=== PATIENT | female | born 1945 | race Caucasian/White ===

== ENCOUNTER 2025-03-24 12:40 | Outpatient (CLI) | payer MEDICARE, BC, SELFPAY ==
--- NOTE | ~2025-03-24 | NM_ITS ---
EXAMINATION: DENY diaz renal scan DATE: 03/24/2025 13:48 INDICATION: Right UPJ obstruction TECHNIQUE: 7.9 mCi Tc-99m MAG3 was administered IV. 40 mg furosemide was administered IV immediately afterward. The patient was scanned in the supine position. A posterior abdominal radionuclide angiog rob was obtained. A subsequent time course of static images of the kidneys, ureters, and bladder was obtained. COMPARISON: None FINDINGS: The posterior abdominal radionuclide angiogram and sequential static images show normal size, positio n, and morphology of the kidneys. There appears be at least mild right hydronephrosis. Peak renal par enchymal uptake was 2.5 min in left kidney and 4.5 min in right kidney (normal peak 3-5 minutes). Th e relative early renal uptake was 43% on the left and 57% on the right (<40% is abnormal). No abnorm alities of the ureters or bladder are seen. T1/2 for clearance of activity from the left kidney and proximal collecting system was 23 minutes. T1/2 for clearance of activity from the right kidney and proximal collecting system was 32 minutes. Notes on interpretation: T1/2 <10 minutes is normal, 10-15 minutes is low grade obstruction of questi onable clinical significance, 15-20 minutes is partial obstruction that is likely clinically signific ant, >20 minutes is high grade obstruction. Note that false positives may be seen with supine positio ana luisa, dehydration, severely dilated nonobstructed kidney, atonic collecting system, poor renal functi on, and chronic furosemide use. IMPRESSION: 1. Borderline decreased left renal function which contributes 43% to total renal function. 2. Delayed activity clearance from both kidneys more prominent on the right where there appears to b e at least mild right hydronephrosis. The degree of delay in both kidneys would be consistent with hi gh-grade obstruction however there is no evident hydronephrosis at the left kidney which suggests the re may be component of either underlying poor renal function. Reviewed, dictated and finalized at location A. IMPRESSION: 1. Borderline decreased left renal function which contributes 43% to total oni al function. 2. Delayed activity clearance from both kidneys more prominent on the right wh ere there appears to be at least mild right hydronephrosis. The degree of delay in both kidneys would be consistent with high-grade obstruction however there is no evident hydronephrosis at the left kidney which suggests there may be com ponent of either underlying poor renal function.
--- OUTSIDE RECORDS SUMMARY | 2025-03-24 12:51 | XMS_ITS ---
Author Organization [facility] Address [address] [place], [place] [id number] Care Team Providers Care Auto Body Builder Apprentice Name Role Phone FLO GUZMAN Unavailable [phone] ALLISON HUANG Unavailable Unavailable Allergies Allergen (clinical drug ingredient) Drug/Non Drug Allergy documented on EMR Reaction Allergy Type Onset Date Status penicillin V Penicillin V (uncoded) Unknown Allergy 10/27 active Product containing sulfonamide (product) (uncoded) Unknown Allergy 11/07/2015 active cephalexin Cephalexin Unknown Drug Allergy Activ e REASON FOR VISIT Patient presents for at-risk foot care . The patient has painful toenails and calluses that are causing difficulty with ambulation and shoegear. The onset is gradual Medications Medication SIG (Take, Route, Frequency, Duration) Notes Start Date End Date Status ciclopirox 80 MG/ML Topical Solution ciclopirox 80 MG/ML Topical SolutionOriginal Medicationciclopirox 80 MG/ML Topical Solution *Reorder from [employer] for eRx and Interaction Alerts* 11/07/2015 Active Encounters Encounter Location Date Provider Diagnosis [facility] [address] [place], [place] [id number] 12/22/2024 FLO GUZMAN Tinea unguium B35.1 ; Pain in right foot M79.671 ; Pain in left foot M79.672 ; Atherosclerosis of moapa arteries of extremities with intermittent claudication, bilateral legs I70.213 and Acquired keratosis [keratoderma] palmaris et plantaris L85.1 Assessments Encounter Date Diagnosis (ICD Code) Assessment Notes Treatment Notes Treatment Clinical Notes Section Notes 12/22/2024 Tinea unguium (ICD-10 - B35.1) Nails 1-5 Bilateral were debrided extensively with nail nippers and emery board, reducing length and girth to pink healthy tissue with any subungual debris and necrotic tissue removed 12/22/2024 Pain in right foot (ICD-10 - M79.671) 12/22/2024 Pain in left foot (ICD-10 - M79.672) 12/22/2024 Atherosclerosis of moapa arteries of extremities with intermittent claudication, bilateral legs (ICD-10 - I70.213) 12/22/2024 Acquired keratosis [keratoderma] palmaris et plantaris (ICD-10 - L85.1) A total of 4 corns or calluses, as described in the note above, were cut and pared utilizing a #15 blade Plan Of Treatment Treatment Notes Assessment Notes Tinea unguium Nails 1-5 Bilateral were debrided extensively with nail nippers and emery board, reducing length and girth to pink healthy tissue with any subungual debris and necrotic tissue removed Acquired keratosis [keratode rma] palmaris et plantaris A total of 4 corns or calluses, as described in the note above, were cut and pared utilizing a #15 blade Next Appt Details Follow Up: 10 - 12 weeks, Re ason: At-Risk Foot care, sooner if problems develop. Provider Name:FLO GUZMAN, 02:20:00 PM, [address], [phone], Progress Notes * CHATO WILSON MDOB: 6 (79 yo F)Acc No.[id number]:12/22/2024 Patient: CHATO MADRIGAL Provider: Romel Guzman DPM :1945 A ge:79 Y S ex:Female Date:12/22/2024 Address:[address] [place], [place] [id number] Subjective: * Chief Complaints: * 1 . Patient presents for at-risk foot care . The patient has painful toenails and calluses that are causing difficulty with ambulation and shoegear. The onset is gradual. * HPI: H PI: General care P atient presents to the office for at risk foot care. Patient states that their nails are thickened, elongated and painful. Patient states that it is aggravated by shoe gear. Onset is gradual. Patient denies being diabetic., Patient denies taking blood thinners., Date last seen by Dr. James was 2024., Initials LB. * Medical History: * Family History: F ather: PRN - Father: :: Heart Disease < 55 yrs,,known absent . M other: PRN - Mother: :: Hypertension,,known absent , :: Stroke,,known absent . * Social History: M igrated Social History: M igrated Social History: History of tobacco use : , Alcohol intake : , Smoking Status : Never smoked. * Medications: T aking ciclopirox 80 MG/ML Topical Solution , Notes to Pharmacist: ciclopirox 80 MG/ML Topical SolutionOriginal Medicationciclopirox 80 MG/ML Topical Solution *[facility]*, Medication List reviewed and reconciled with the patient * Allergies: P enicillin V: Allergy - Onset Date 11/07/2015, Product containing sulfonamide (product): Allergy - Onset Date 11/07/2015, Cephalexin. Objective: * Vitals: * Examination: P hysical Examination: General appearance: A lert, pleasant, well-nourished and in no acute distress. D ermatologic: Skin findings: S kin is thin, atrophic and lacking pedal hair. Hypertrophic / hyperkeratotic lesion: p lantar aspect of the 5th metatarsal head of the left and right foot, dorsal aspect of the left 2nd and 5th digits. Nail pathology: N ails 1, 2, 3, 4, and 5 bilateral are elongated, thick, discolored, and dystrophic with subungual debris. They are painful to palpation. ? V ascular: Dorsalis pedis pulse: 1 /4 b ilateral. Posterior tibial pulse: 0 /4 bilateral. Capillary refill: g reater than 3 seconds. Edema: N o edema bilateral. N eurologic: Gross sensation G rossly intact to light touch. There is negative Tinel's sign. M usculoskeletal: Muscle Strength M uscle strength is 5/5 in regards to dorsiflexion, plantarflexion, inversion, and eversion in bilateral lower extremities. ? Assessment: * Assessment: 1. T josettea unguium - B35.1 (Primary) 2 . P ain in right foot - M79.671 ? 3 . P ain in left foot - M79.672 4 . A therosclerosis of moapa arteries of extremities with intermittent claudication, bilateral legs - I70.213 5 . Acquired keratosis [keratoderma] palmaris et plantaris - L85.1 Plan: * Treatment: 2. A cquired keratosis [keratoderma] palmaris et plantaris Notes: A total of 4 corns or calluses, as described in the note above, were cut and pared utilizing a #15 blade * Procedure Codes: 1 1056 TRIM SKIN LESIONS, 2 TO 4, Modifiers: Q8 , 48233 DEBRIDE NAIL, 6 OR MORE, Modifiers: 59 , Q8 * Follow Up: 1 0 - 12 weeks (Reason: At-Risk Foot care, sooner if problems develop.) * Billing Information: * Visit Code: * Procedure Codes: 87945 TRIM SKIN LESIONS, 2 TO 4. Modifiers: Q8 47290 DEBRIDE NAIL, 6 OR MORE. Modifiers: 59, Q8 * Electronic signature of FLO GUZMAN DPM on 03/24/2025 at 12:51 PM CDT Sign off status: Pending * Provider: Romel Guzman DPM Date: 0 12/22/2024 Generated for Marti quesada/Loan/Jenniferitting on: 0 03/24/2025 12:51 PM CDT History and Physical Notes * HPI (History of Present Illness) Category Sub-Category Detail Notes Category Not es HPI General care Patient presents to the office for at risk foot care. Patient states that their nails are thickened, elongated and painful. Patient states that it is aggravated by shoe gear. Onset is gradual. Patient denies being diabetic., Patient denies taking blood thinners., Date last seen by Dr. James was 2024., Initials LB Examination Category Sub-Category Detail Notes Category Not es Dermatologic Skin findings: Skin is thin, at rophic and lacking pedal hair Nail pathology: Nails 1, 2, 3, 4, an d 5 bilateral are elongated, thick, discolored, and dystrophic with subungual debris. They are painful to palpation Hypertrophic / hyperkeratotic lesion: pl nina aspect of the 5th metatarsal head of the left and right foot, dorsal aspect of the left 2nd and 5th digits Neurologic Gross sensation Grossly intact t o light touch. There is negative Tinel's sign Vascular Dorsalis pedis pulse: 1/4 bilateral Edema: No edema bilateral Capillary refill: greater than 3 secon ds Posterior tibial pulse: 0/4 bilateral Physical Examination General appearance: Alert, pleasant, well-nourished and in no acute distress Musculoskeletal Muscle Strength Muscle strength is 5/5 in regards to dorsiflexion, plantarflexion, inversion, and eversion in bilateral lower extremities
--- OUTSIDE RECORDS SUMMARY | 2025-03-24 12:52 | XMS_ITS | Clinical Summary ---
Author Organization [facility] Address [address] [place] [address] Care Team Providers Care Process Artist Name Role Phone Parent, Humaira BRAYD Primary Care Provider Allergies Active Allergy Reactions Criticality Noted Date Comments Atorvastatin Muscle pain Medium 06/30/2012 Cephalexin Hives,Rash High 06/30/2018 Rash Conjugated Estrogens Headache Medium 06/30/2012 Penicillins Hives,Itching,Rash,R ednes s,Swelling Medium 06/30/2012 Rash Sulfa (Sulfonamide Antibiotics) Hives,Itching,Rash,Rednes s,Swelling Medium 06/30/2012 Medications potassium chloride ER (KLOR-CON) 20 mEq CR tablet Klor-Con M20 mEq tablet,exten ded release TAKE 1 TABLET BY MOUTH EVERY DAY 08/29/2016 Active ascorbic acid (VITAMIN C) 500 mg tablet,chewable Acti ve cholecalciferol (VITAMIN D-3) 74620 unit capsule Take 1 capsule (10,000 Units total) by mouth daily Active -fqsP2-C1 2-E-FA-fish oil [id number] ju-io-lzm-mcg capsule Take by mouth Active cranberry 400 mg capsule Take by mouth Active cyanocobalamin (Vitamin B-12) 1,000 mcg tabletIndicatio ns:Prevention of Vitamin B12 Deficiency Take 1 tablet (1,000 mcg total) by mouth daily Active atenoloL (TENORMIN) 50 mg tablet TAKE 1 TABLET BY MOUTH EVERY DAY 90 tablet 3 01/30/2024 Active lisinopril-hydr oCHLOROthiazide (ZESTORETIC) 20-25 mg per tablet TAKE 1 TABLET BY MOUTH TWICE A DAY 180 tablet 3 02/06/2024 Active pravastatin (PRAVACHOL) 80 mg tablet TAKE 1 TABLET BY MOUTH EVERY DAY AT NIGHT 90 tablet 3 01/27/2025 Active Active Problems Problem Noted Date Diagnosed Date Exertional dyspnea 09/03/2023 Family history of arteriosclerotic cardiovascula r disease 09/03/2023 Pain of left eye 04/15/2023 Herpes labialis 01/17/2023 COVID-19 01/01/2023 Body mass index (BMI) of 24.0 to 24.9 in adult 0 06/03/2022 On truck terminal manager drug therapy 06/03/2022 LV dysfunction 06/08/2021 Assessment & Plan (02/28/2023 10:51 AM CDT): Patient has minimal LV dysfunction however blood pressure is under good control she is not smoker her lipids are in good range patient not having any symptoms no orthopnea PND or ankle edema advised to continue same medication and salt restriction SVT (supraventricular tachycardia) 06/08/2021 Assessment & Plan (02/28/2023 10:50 AM CDT): Patient has history of SVT presently on atenolol which she is tolerating well however shortly bradycardic. Essential hypertension 05/03/2021 Assessment & Plan (02/28/2023 10:49 AM CDT): Longstanding history of hypertension patient on lisinopril hydrochlorothiazide tolerating well plan to continue same and salt restricted diet Lipids abnormal 05/03/2021 Assessment & Plan (02/28/2023 10:50 AM CDT): Patient has longstanding history of a abnormal lipids on statin which she is tolerating well no side effects no muscle aches advised to continue statin and low-cholesterol diet VPC (ventricular premature complex) 05/03/2021 Abnormal EKG 05/03/2021 Neck pain 05/12/2020 Mixed hyperlipidemia 02/04/2018 Cataract 07/18/2015 Onychomycosis due to dermatophyte 05/24/2014 Localized, primary osteoarthritis 06/28/2012 Mitral valve prolapse 06/28/2012 Osteoarthritis of knee 06/28/2012 Pure hypercholesterolemia 06/28/2012 Tear film insufficiency 06/28/2012 Essential hypertension 06/28/2012 Overview (05/26/2024): Location: None;Severity: Moderate;Progress: Stable;Added By: Roxanna Alfaro;Add to Current Problems: NO Hormone replacement therapy 06/28/2012 Resolved Problems Problem Noted Date Diagnosed Date Resolved Date Dilated cardiomyopathy 05/03/202105/03 Encounters Date Type Department Care Team Description 03/03/2025 11:30 AM CDT Lab [facility] [address] [place] [id number] from Last 3 Months Immunizations Immunization Administration Dates Next Due Pfizer SARS-CoV-2 Monovalent Vaccination (12+ Yrs) PURPLE 02/04/2022,08/20/2021 Surgical History Surgery Date Site/Laterality Comments JOINT REPLACEMENT EYE SURGERY KNEE SURGERY BLADDER REPAIR HYSTERECTOMY CATARACT EXTRACTION 2014 and 2020 Medical History Medical History Date Comments Hyperlipidemia Hypertension Osteoarthritis of knee Neck pain Hormone replacement therapy Mitral valve disorder Cataract Migraines Prior to menopause had frequent migranes. Family History Medical History Relation Name Comments Arthritis Brother 1 Nestor Wetak Cancer Brother 1 Nestor Wetak Rashes / Skin problems Brother 1 Nestor Wetak Stroke Brother 1 Nestor Wetak Arthritis Brother 2 Peter Wetak Cancer Daughter 1 Gilma Wiechert Hypertension Daughter 2 Ayla Cook Heart disease Father Floyd Wetak Heart failure Father Floyd Wetak Hyperlipidemia Father Floyd Wetak Hypertension Mother [place] Wetak Migraines Mother Jacinta Wetak Osteoporosis Mother Jacinta Wetak Heart attack Son 1 Paras Segert Hypertension Son 1 Paras Segert Hypertension Son 2 Cristhian Steward Relation Name Status Comments Brother 1 Nestor Wetak Brother 2 Peter Wetak Daughter 1 Gilma Wiechert Daughter 2 Ayla Cook Father Floyd Wetak Mother Jacinta Wetak Son 1 Paras Segert Son 2 Cristhian Steward Social History Tobacco Use Types Packs/Day Years Used Date Smoking Tobacco: Never Smokeless Tobacco: Never Comments Unknown Sex and Gender Information Value Date Recorded Sex Assigned at Not on file Legal Sex Female 8:14 PM CARTRIDGE FILLER Gender Identity Female 04/26/2021 6:42 PM CDT Sexual Orientation Straight 04/26/2021 6: 42 PM CDT Obstetrics History Last Filed Vital Signs Vital Sign Reading Time Taken Comments Blood Pressure 110/56 05/27/2024 11:46 AM CDT Pulse 68 05/27/2024 11:46 AM CDT Temperature 36.2 C (97.1 F) 09/11/2021 1:13 PM CARTRIDGE FILLER Respiratory Rate 18 01/15/2024 12:41 PM CDT Oxygen Saturation 95% 05/27/2024 11:46 AM CDT Inhaled Oxygen Concentration - - Weight 67.6 kg (149 lb) 05/27/2024 11:46 AM CDT Height 165.1 cm (5' 5) 05/27/2024 11:46 AM CDT Body Mass Index 24.79 05/27/2024 11:46 AM CDT Plan of Treatment Health Maintenance Due Date Last Done Comments Depression Screening 1945 Fall Risk Assessment 1945 Hepatitis B Screening 1964 Zoster Vaccine (1 of 2) 1996 Well Visit 65+ 2011 Covid-19 Vaccine (2023-2 5 season) 2024 07/30/2022, 02/04/2022, 02/04/2022, Additional history exists Osteoporosis Screening-Bone Density Scan 06/09/2025 06/09/2023 DTaP/Tdap/Td Vaccine (2 - Td or Tdap) 02/05/2028 02/04/2018, 11/17/2006 Pneumococcal vaccine 65+ Completed 04/02/2019, 02/24 Breast Cancer Screening-Mammogram Discontinued 06/05/2023, 06/04/2022, 06/04/2022, Additional history exists Influenza Vaccine Completed 08/27/2024, , 07/15/2022, Additional history exists Hepatitis C Screening Completed 11/17/2024, 024 Procedures Procedure Name Priority Date/Time Associated Diagnosis Comments DIFFERENTIAL AUTO Routine 03/03/2025 11: 24 AM CDT IRON PROFILE W/ IBC Routine 03/03/2025 1 1:24 AM CDT FERRITIN Routine 03/03/2025 11:24 AM CDT CBC WITH AUTO DIFFERENTIAL Routine 03/03/2025 11:24 AM CDT HEPATITIS C ANTIBODY Routine 11/17/2024 11:25 AM CARTRIDGE FILLER from Last 3 Months or Most Recently Relevant to Health Maintenance Results * Differential, auto (03/03/2025 11:24 AM CDT) Pathologist [facility] Neutrophil abs 3.94 1.50 - 6.50 K/cumm Imm gran abs 0.02 0.00 - 0.10 K/cumm [facility] Lymphocyte abs 1.68 0.80 - 3.30 K/cumm [facility] Monocyte abs 0.61 0.20 - 0.80 K/cumm [facility] Eosinophil abs 0.12 0.00 - 0.50 K/cumm [facility] Basophil abs 0.04 0.00 - 0.10 K/cumm [facility] Neutrophil pct 61.5 % [facility] Comment: Interpretive Data Percent cell count reference ranges are not reported, since discordance with absolute values may lead to misinterpretation of CBC data. Current Interpretive Data was last revised on 2018. Imm gran pct 0.3 % [facility] Comment: Interpretive Data Percent cell count reference ranges are not reported, since discordance with absolute values may lead to misinterpretation of CBC data. Current Interpretive Data was last revised on 2018. Lymphocyte pct 26.2 % [facility] Comment: Interpretive Data Percent cell count reference ranges are not reported, since discordance with absolute values may lead to misinterpretation of CBC data. Current Interpretive Data was last revised on 2018. Monocyte pct 9.5 % [facility] Comment: Interpretive Data Percent cell count reference ranges are not reported, since discordance with absolute values may lead to misinterpretation of CBC data. Current Interpretive Data was last revised on 2018. Eosinophil pct 1.9 % [facility] Comment: Interpretive Data Percent cell count reference ranges are not reported, since discordance with absolute values may lead to misinterpretation of CBC data. Current Interpretive Data was last revised on 2018. Basophil pct 0.6 % [facility] Comment: Interpretive Data Percent cell count reference ranges are not reported, since discordance with absolute values may lead to misinterpretation of CBC data. Current Interpretive Data was last revised on 2018. Blood 03/03/2025 11:2 4 AM CDT 03/03/2025 12:13 PM CDT Makayla Hollis MD LAB BLOOD ORDERABLES Rhea l Result Performing Organization Address City/[facility]/ZIP Co de Phone Number [address] [place] [address] * Iron profile w/ IBC (03/03/2025 11:24 AM CDT) Pathologist [facility] Iron 94 35 - 145 mcg/dL TIBC 282 250 - 400 mcg/dL [facility] Transferrin saturation 33 20 - 50 % [facility] Blood 03/03/2025 11:2 4 AM CDT 03/03/2025 12:13 PM CDT Makayla Hollis MD LAB BLOOD ORDERABLES Rhea l Result Performing Organization Address [facility] Co de Phone Number [address] [address] * (ABNORMAL) CBC with auto differential (03/03/2025 11:24 AM CDT) WBC 6.41 3.80 - 9.90 K/cumm Hgb 12.1 11.9 - 15.5 g/dL [facility] Hct 36.0 35.6 - 45.5 % [facility] Plt 178 150 - 400 K/cumm [facility] MPV 11.9 9.1 - 12.3 fL [facility] RBC 3.82(L) 3.90 - 5.20 M/cumm [facility] MCV 94.2 81.3 - 96.4 fL [facility] MCH 31.7 27.1 - 33.3 pg [facility] MCHC 33.6 32.3 - 35.7 g/dL [facility] RDW CV 12.8 11.1 - 14.9 % [facility] RDW SD 44.2 35.7 - 48.1 fL [facility] NRBC abs 0.00 0.00 - 0.01 K/cumm [facility] Blood 03/03/2025 11:2 4 AM CDT 03/03/2025 12:13 PM CDT Makayla Hollis MD LAB BLOOD ORDERABLES Rhea l Result Performing Organization Address City/[facility] Co de Phone Number [address] [place] [address] * Ferritin (03/03/2025 11:24 AM CDT) Ferritin 109 15 - 150 ng/mL Blood 03/03/2025 11:2 4 AM CDT 03/03/2025 12:13 PM CDT Makayla Hollis MD LAB BLOOD ORDERABLES Rhea l Result Performing Organization Address [facility] de Phone Number [address] [place] [address] * Hepatitis C antibody Blood (11/17/2024 11:25 AM CARTRIDGE FILLER) Pathologist [facility] Hep C Ab Nonreactive Nonreactive Comment: Antibodies to HCV not detected. Does NOT exclude the possibility of recent exposure to HCV. Current interpretive data was last revised on 22 Interpretive Data Nonreactive: Antibodies to HCV not detected. Does NOT exclude the possibility of recent exposure to HCV. Equivocal: Equivocal for HCV antibodies. Supplemental molecular testing will be automatically performed to determine infection status in accordance with current CDC screening recommendations. Reactive: Positive for HCV antibodies. This may represent current or past HCV infection. Supplemental molecular testing will be automatically performed to determine current infection status in accordance with current CDC screening recommendations. Interpretive data was last revised on 2020. Blood 11/17/2024 11:2 5 AM CARTRIDGE FILLER 11/17/2024 12:02 PM CARTRIDGE FILLER Luz Maria Corral NP LAB MICROBIOLOGY - G ENERAL ORDERABLES Final Result [facility] [address] [facility] Department [place] [address] from Last 3 Months or Most Recently Relevant to Health Maintenance Insurance MEDICARE [employer] O MEDICARE [facility] Address: [address] [place] [address] Care Teams Process Artist Relationship Specialty Start Date End Date ParentHumaira PA [address] [phone] PCP - General Family Practice 09/24/24
--- OUTSIDE RECORDS SUMMARY | 2025-03-24 12:52 | XMS_ITS | Patient Health Record ---
Author Organization [facility] Address [address] [place], [place] [id number] Care Team Providers Care Experience Planning Strategist Name Role Phone FLO GUZMAN Unavailable [phone] ALLISON HUANG Unavailable Unavailable Allergies Allergen (clinical drug ingredient) Drug/Non Drug Allergy documented on EMR Reaction Allergy Type Onset Date Status penicillin V Penicillin V (uncoded) Unknown Allergy 10/27 active Product containing sulfonamide (product) (uncoded) Unknown Allergy 11/07/2015 active cephalexin Cephalexin Unknown Drug Allergy Activ e Reason For Referral No Information Medications Medication SIG (Take, Route, Frequency, Duration) Notes Start Date End Date Status ciclopirox 80 MG/ML Topical Solution ciclopirox 80 MG/ML Topical SolutionOriginal Medicationciclopirox 80 MG/ML Topical Solution *Reorder from [employer] for eRx and Interaction Alerts* 11/07/2015 Active Immunizations Vaccine Route Administration Date Status Comme nts Influenza (split), 3 yrs and above Unknown 08/11/2012 A dministered Influenza (split), 3 yrs and above Unknown 08/18/2013 A dministered Influenza, high-dose seasona l, quadrivalent, preservative free >65 yrs Unknown 06/18/2020 Administered Influenza, quadrivalent, spl it virus Unknown 07/18/2015 Administered Influenza, quadrivalent, spl it virus Unknown 08/13/2017 Administered Influenza, quadrivalent, spl it virus Unknown 08/05/2018 Administered Influenza, quadrivalent, spl it virus Unknown 09/11/2019 Administered Influenza, quadrivalent, spl it virus Unknown 06/29/2021 Administered Influenza, quadrivalent, spl it virus Unknown 07/15/2022 Administered Influenza, unspecified formulation Unknown 08/27/2024 A dministered Pfizer-Biontech Covid-19 Vac cine 1st dose Unknown 11/30/2020 Administered Pfizer-[employer]iontech Covid-19 Vac cine 1st dose Unknown 11/30/2020 Administered Pfizer-Biontech Covid-19 Vac cine 1st dose Unknown 12/21/2020 Administered Pfizer-Biontech Covid-19 Vac cine 1st dose Unknown 12/21/2020 Administered Pfizer-Biontech Covid-19 Vac cine 1st dose Unknown 08/20/2021 Administered Pfizer-Biontech Covid-19 Vac cine 1st dose Unknown 08/20/2021 Administered Pfizer-Biontech Covid-19 Vac cine 1st dose Unknown 02/04/2022 Administered Pfizer-Biontech Covid-19 Vac cine 1st dose Unknown 02/04/2022 Administered Pneumococcal conjugate PCV 13 Unknown 03/06/2015 Admini stered Pneumococcal polysaccharide PPV23 Unknown 04/02/2019 Ad ministered Tdap Unknown 02/04/2018 Administered Vital Signs Height-cm 167.64 cm 02/23/2025 Weight-kg 69.85 kg 02/23/2025 Height 66.00 in 02/23/2025 Weight 154 lbs 02/23/2025 BMI 24.85 kg/m2 02/23/2025 Encounters Encounter Location Date Provider Diagnosis [facility] [address] [place], [place] [id number] 12/22/2024 FLO SNOOK Tinea unguium B35.1 ; Pain in right foot M79.671 ; Pain in left foot M79.672 ; Atherosclerosis of [place] arteries of extremities with intermittent claudication, bilateral legs I70.213 and Acquired keratosis [keratoderma] palmaris et plantaris L85.1 [facility] [address] [place], [place] [id number] 02/23/2025 FOL SNOOK Tinea unguium B35.1 ; Pain in right foot M79.671 ; Pain in left foot M79.672 ; Atherosclerosis of [place] arteries of extremities with intermittent claudication, bilateral legs I70.213 and Acquired keratosis [keratoderma] palmaris et plantaris L85.1 [facility] [address] [place], [place] [id number] 05/13/2024 FLO SNOOK Tinea unguium B35.1 ; Pain in right foot M79.671 ; Pain in left foot M79.672 ; Atherosclerosis of [place] arteries of extremities with intermittent claudication, bilateral legs I70.213 and Acquired keratosis [keratoderma] palmaris et plantaris L85.1 [facility] [address] [place], [place] [id number] 07/22/2024 FLO SNOOK Tinea unguium B35.1 ; Pain in right foot M79.671 ; Pain in left foot M79.672 ; Atherosclerosis of [place] arteries of extremities with intermittent claudication, bilateral legs I70.213 and Acquired keratosis [keratoderma] palmaris et plantaris L85.1 [facility] [address] [place], [place] [id number] 10/06/2024 FLO SNOOK Tinea unguium B35.1 ; Pain in right foot M79.671 ; Pain in left foot M79.672 ; Atherosclerosis of [place] arteries of extremities with intermittent claudication, bilateral legs I70.213 and Acquired keratosis [keratoderma] palmaris et plantaris L85.1 Assessments Encounter Date Diagnosis (ICD Code) Assessment Notes Treatment Notes Treatment Clinical Notes Section Notes 05/13/2024 Tinea unguium (ICD-10 - B35.1) Nails 1-5 Bilateral were debrided extensively with nail nippers and emery board, reducing length and girth to pink healthy tissue with any subungual debris and necrotic tissue removed 05/13/2024 Pain in right foot (ICD-10 - M79.671) 07/22/2024 Tinea unguium (ICD-10 - B35.1) Nails 1-5 Bilateral were debrided extensively with nail nippers and emery board, reducing length and girth to pink healthy tissue with any subungual debris and necrotic tissue removed 07/22/2024 Pain in right foot (ICD-10 - M79.671) 10/06/2024 Tinea unguium (ICD-10 - B35.1) Nails 1-5 Bilateral were debrided extensively with nail nippers and emery board, reducing length and girth to pink healthy tissue with any subungual debris and necrotic tissue removed 10/06/2024 Pain in right foot (ICD-10 - M79.671) 12/22/2024 Tinea unguium (ICD-10 - B35.1) Nails 1-5 Bilateral were debrided extensively with nail nippers and emery board, reducing length and girth to pink healthy tissue with any subungual debris and necrotic tissue removed 12/22/2024 Pain in right foot (ICD-10 - M79.671) 02/23/2025 Tinea unguium (ICD-10 - B35.1) Nails 1-5 Bilateral were debrided extensively with nail nippers and emery board, reducing length and girth to pink healthy tissue with any subungual debris and necrotic tissue removed 02/23/2025 Pain in right foot (ICD-10 - M79.671) 02/23/2025 Pain in left foot (ICD-10 - M79.672) 12/22/2024 Pain in left foot (ICD-10 - M79.672) 10/06/2024 Pain in left foot (ICD-10 - M79.672) 07/22/2024 Pain in left foot (ICD-10 - M79.672) 05/13/2024 Pain in left foot (ICD-10 - M79.672) 05/13/2024 Atherosclerosis of [place] arteries of extremities with intermittent claudication, bilateral legs (ICD-10 - I70.213) 07/22/2024 Atherosclerosis of [place] arteries of extremities with intermittent claudication, bilateral legs (ICD-10 - I70.213) 10/06/2024 Atherosclerosis of [place] arteries of extremities with intermittent claudication, bilateral legs (ICD-10 - I70.213) 12/22/2024 Atherosclerosis of [place] arteries of extremities with intermittent claudication, bilateral legs (ICD-10 - I70.213) 02/23/2025 Atherosclerosis of [place] arteries of extremities with intermittent claudication, bilateral legs (ICD-10 - I70.213) 02/23/2025 Acquired keratosis [keratoderma] palmaris et plantaris (ICD-10 - L85.1) A total of 4 corns or calluses, as described in the note above, were cut and pared utilizing a #15 blade 12/22/2024 Acquired keratosis [keratoderma] palmaris et plantaris (ICD-10 - L85.1) A total of 4 corns or calluses, as described in the note above, were cut and pared utilizing a #15 blade 10/06/2024 Acquired keratosis [keratoderma] palmaris et plantaris (ICD-10 - L85.1) A total of 2 corns or calluses, as described in the note above, were cut and pared utilizing a #15 blade 07/22/2024 Acquired keratosis [keratoderma] palmaris et plantaris (ICD-10 - L85.1) A total of 2 corns or calluses, as described in the note above, were cut and pared utilizing a #15 blade 05/13/2024 Acquired keratosis [keratoderma] palmaris et plantaris (ICD-10 - L85.1) A total of 2 corns or calluses, as described in the note above, were cut and pared utilizing a #15 blade Plan Of Treatment Next Appt Details Provider Name:FLO GUZMAN, 02:20:00 PM, [address], [place], [place], [id number], Insurance Providers Payer Name Payer Address Payer Phone Subscriber Number Group Number Insured Name Patient Relationship to Insured Coverage Start Date Coverage End Date Medicare Part B [place] [address] [place] [address] [id number] CHATO WILSON Self - patient is the insured [facility] ([facility]) ATTN CLAIMS [address] [place] [address] [id number] GRIS WILSON Spouse - patient is the spouse of the insured [facility] [address] [place], [place] [phone] [id number] CHATO WILSON Self - patient is the insured
--- OUTSIDE RECORDS SUMMARY | 2025-03-24 12:52 | XMS_ITS | Referral Summary ---
Author Organization [facility] Address [address] [place] [address] Care Team Providers Care Vest Baster Name Role Phone Parent, Humaira BRADY Primary Care Provider [phone] Encounters Date Type Department Care Team Description 03/03/2025 11:30 AM CDT Lab [facility] [address] [place] [address] from Last 3 Months Allergies Active Allergy Reactions Criticality Noted Date [...] mg tablet,chewable Acti ve cholecalciferol (VITAMIN D-3) 06472 unit capsule Take 1 capsule (10,000 Units total) by mouth daily Active [id number] 2-E-FA-fish oil [id number] jf-po-toe-mcg capsule Take by mouth Active cranberry 400 [...] to 24.9 in adult 0 06/03/2022 On [facility] drug therapy 06/03/2022 LV dysfunction 06/08/2021 Assessment [...] Diagnosed Date Resolved Date Dilated cardiomyopathy 05/03/202105/03 Immunizations Immunization Administration Dates Next Due Pfizer SARS-CoV-2 Monovalent Vaccination (12+ Yrs) PURPLE 02/04/2022,08/20/2021 Social History Tobacco Use Types Packs/Day Years Used Date Smoking Tobacco: Never Smokeless Tobacco: Never Comments Unknown Sex and Gender Information Value Date Recorded Sex Assigned at Not on file Legal Sex Female 8:14 PM CAD PROGRAMMER Gender Identity Female 04/26/2021 6:42 PM CDT Sexual Orientation Straight 04/26/2021 6: 42 PM CDT Last Filed Vital Signs Vital Sign Reading Time Taken Comments Blood Pressure 110/56 05/27/2024 11:46 AM CDT Pulse 68 05/27/2024 11:46 AM CDT Temperature 36.2 C (97.1 F) 09/11/2021 1:13 PM CAD PROGRAMMER Respiratory Rate 18 01/15/2024 12:41 PM CDT Oxygen Saturation 95% 05/27/2024 11:46 AM CDT Inhaled Oxygen Concentration - - Weight 67.6 kg (149 lb) 05/27/2024 11:46 AM CDT Height 165.1 cm (5' 5) 05/27/2024 11:46 AM CDT Body Mass Index 24.79 05/27/2024 11:46 AM CDT Plan of Treatment Not on file Procedures Procedure Name Priority Date/Time Associated Diagnosis Comments DIFFERENTIAL AUTO Routine 03/03/2025 11: 24 AM CDT IRON PROFILE W/ IBC Routine 03/03/2025 1 1:24 AM CDT FERRITIN Routine 03/03/2025 11:24 AM CDT CBC WITH AUTO DIFFERENTIAL Routine 03/03/2025 11:24 AM CDT HEPATITIS C ANTIBODY Routine 11/17/2024 11:25 AM CAD PROGRAMMER from Last 3 Months or Most Recently Relevant to Health Maintenance Results * Differential, auto (03/03/2025 11:24 AM CDT) Pathologist [facility] Neutrophil abs 3.94 1.50 - 6.50 K/cumm Imm gran abs 0.02 0.00 - 0.10 K/cumm [facility] Lymphocyte abs 1.68 0.80 - 3.30 K/cumm [facility] Monocyte abs 0.61 0.20 - 0.80 K/cumm [facility] Eosinophil abs 0.12 0.00 - 0.50 K/cumm [facility] Basophil abs 0.04 0.00 - 0.10 K/cumm [facility] Neutrophil pct 61.5 % [facility] Comment: Interpretive Data Percent cell count reference ranges are not reported, since discordance with absolute values may lead to misinterpretation of CBC data. Current Interpretive Data was last revised on 2018. Imm gran pct 0.3 % [facility] Comment: Interpretive Data Percent cell count reference ranges are not reported, since discordance with absolute values may lead to misinterpretation of CBC data. Current Interpretive Data was last revised on 2018. Lymphocyte pct 26.2 % [facility] Comment: Interpretive Data Percent cell count reference ranges are not reported, since discordance with absolute values may lead to misinterpretation of CBC data. Current Interpretive Data was last revised on 2018. Monocyte pct 9.5 % [facility] Comment: Interpretive Data Percent cell count reference ranges are not reported, since discordance with absolute values may lead to misinterpretation of CBC data. Current Interpretive Data was last revised on 2018. Eosinophil pct 1.9 % [facility] Comment: Interpretive Data Percent cell count reference ranges are not reported, since discordance with absolute values may lead to misinterpretation of CBC data. Current Interpretive Data was last revised on 2018. Basophil pct 0.6 % [facility] Comment: Interpretive Data Percent cell count reference ranges are not reported, since discordance with absolute values may lead to misinterpretation of CBC data. Current Interpretive Data was last revised on 2018. Blood 03/03/2025 11:2 4 AM CDT 03/03/2025 12:13 PM CDT Makayla Hollis MD LAB BLOOD ORDERABLES Rhea l Result Performing Organization Address [facility] Co de Phone Number [address] [place] [employer] [place] [address] * Iron profile w/ IBC (03/03/2025 11:24 AM CDT) Pathologist [facility] Iron 94 35 - 145 mcg/dL TIBC 282 250 - 400 mcg/dL [facility] Transferrin saturation 33 20 - 50 % [facility] Blood 03/03/2025 11:2 4 AM CDT 03/03/2025 12:13 PM CDT Makayla Hollis MD LAB BLOOD ORDERABLES Rhea l Result Performing Organization Address City/[facility]/ZIP Co de Phone Number [address] [place] [address] * (ABNORMAL) CBC with auto differential (03/03/2025 11:24 AM CDT) Pathologist [facility] WBC 6.41 3.80 - 9.90 K/cumm Hgb 12.1 11.9 - 15.5 g/dL [facility] Hct 36.0 35.6 - 45.5 % [facility] Plt 178 150 - 400 K/cumm [facility] MPV 11.9 9.1 - 12.3 fL [facility] RBC 3.82(L) 3.90 - 5.20 M/cumm [facility] MCV 94.2 81.3 - 96.4 fL [facility] MCH 31.7 27.1 - 33.3 pg [facility] MCHC 33.6 32.3 - 35.7 g/dL [facility] RDW CV 12.8 11.1 - 14.9 % [facility] RDW SD 44.2 35.7 - 48.1 fL [facility] NRBC abs 0.00 0.00 - 0.01 K/cumm [facility] Blood 03/03/2025 11:2 4 AM CDT 03/03/2025 12:13 PM CDT Makayla Hollis MD LAB BLOOD ORDERABLES Rhea l Result Performing Organization Address City/[facility] Co de Phone Number [address] [place] [place] [address] * Ferritin (03/03/2025 11:24 AM CDT) [facility] Ferritin 109 15 - 150 ng/mL Blood 03/03/2025 11:2 4 AM CDT 03/03/2025 12:13 PM CDT Result [facility] Makayla Hollis MD LAB BLOOD ORDERABLES Rhea l Result Performing Organization Address City/[facility] Co de Phone Number [address] [place] [place] [address] * Hepatitis C antibody Blood (11/17/2024 11:25 AM CAD PROGRAMMER) [facility] Hep C Ab Nonreactive Nonreactive Comment: Antibodies [...] on 2020. Blood 11/17/2024 11:2 5 AM CAD PROGRAMMER 11/17/2024 12:02 PM CAD PROGRAMMER Luz Maria Izabela Corral NP LAB MICROBIOLOGY - G ENERAL ORDERABLES Final Result [facility] [address] [facility] [place] [address] from Last 3 Months or Most Recently Relevant to Health Maintenance Insurance MEDICARE [employer]OS MEDICARE [facility] FEDERAL Member Subscriber Plan / Payer (Ef fective 2015-Present) Name:Lata Steward Relation to Subscriber:Spouse Name:Cirilo Steward Date of :1946 (Home) (Work) Address: [address] [place] [address] Payer ID:[id number] (NAIC) Group ID:[id number] Type:[facility] Address: [address] [place] [id number] Care Teams Vest Baster Relationship Specialty Start Date End Date Humaira Pedraza PA [address] [place] [address] PCP - General Family Practice 09/24/24
--- OUTSIDE RECORDS SUMMARY | 2025-03-24 12:52 | XMS_ITS | Data Portability ---
Author Organization [facility] Address [address] [place] [address] Assessment No assessment recorded. Plan of Treatment Reminders Order Date Submit Date Provider Last Modified By Organization Details Last Modified Time Details Appointments ANY 15 2024 10:00A M FELI Cuenca Not available Not available Not available Lab culture, urine 2024 025 Pins [facility], [address], [address], [place], [address], 01/08/2025 02:28:15 urinalysi s, dipstick 2024 025 nabil In-Office Order, Internal Use Only DO Not Attach Compendium DO Not Attach Compendium, Do Not Delete/merge, [address] 12/23/2024 13:07:01 culture, urine 2024 025 Pins [facility], [address], [address], [place], [address], 12/14/2024 21:50:04 Referral None recorded. Procedures None recorded. Surgeries None recorded. Imaging None recorded. Medication Orders None recorded. Patient TargetsNo targets recorded. Patient Instructions Encounter Date Encounter Id Patient Instructions Last Modified By Organization Details Last Modified Time 11/08/2024 [id number] blood pressure check* - WT: 155.8, HT: 5'6 TEMP: 96.0 O2: 98% PUL: 64 B/P: 120/69 [email or web address] Not available 11/08/2024 12:57:11 Reason for Referral None Reported. Results Created Date Observation Date Name Description Value Unit Range Abnormal Flag Note LastModifiedBy Organization Detail LastModifiedTime 12/13/1912/15/2024 CULTU RE, URINE , ROUTI NE culture, urine, routine SEE NOTE CULTU RE, URINE , ROUTI NE Micro Numbe r: [id number] Test Statu s: Final Speci men Sourc e: Urine Speci men Quali ty: Adequ ate Resul t: Upon furth er incub ation : Mixed genit al radha isola jessica. These super ficia l bacte daija are not indic ative of a urina ry tract infec tion. No furth er organ ism ident ifica tion is warra nted on this speci men. If clini julio indic ated, recol lect clean -catc h, mid-s tream urine and trans raya immed iatel y to Urine Cultu re Trans port Tube. Not Available [address], [address], 12/15/2024 23:55:50 12/23/19 25 12/24/2024 URINA LYSIS , COMPL ETE W/REF WILFREDO TO CULTU RE color YELLOW yellow normal Not Available [address], [address], 12/24/2024 23:57:31 12/23/19 25 12/24/2024 URINA LYSIS , COMPL ETE W/REF WILFREDO TO CULTU RE appearance TURBID clear abnormal Not Available [address], [address], 12/24/2024 23:57:31 12/23/19 25 12/24/2024 URINA LYSIS , COMPL ETE W/REF WILFREDO TO CULTU RE specific gravity 1.012 1.001- 1.035 normal Not Available [address], [address], 12/24/2024 23:57:31 12/23/19 25 12/24/2024 URINA LYSIS , COMPL ETE W/REF WILFREDO TO CULTU RE pH 7.0 5.0-8. 0 normal Not Available [address], [address], 12/24/2024 23:57:31 12/23/19 25 12/24/2024 URINA LYSIS , COMPL ETE W/REF WILFREDO TO CULTU RE glucose NEGATI VE negati ve normal Not Available [address], [address], 12/24/2024 23:57:31 12/23/19 25 12/24/2024 URINA LYSIS , COMPL ETE W/REF WILFREDO TO CULTU RE bilirubin NEGATI VE negati ve normal Not Available [address], [address], 12/24/2024 23:57:31 12/23/19 25 12/24/2024 URINA LYSIS , COMPL ETE W/REF WILFREDO TO CULTU RE ketones NEGATI VE negati ve normal Not Available [address], [address], 12/24/2024 23:57:31 12/23/19 25 12/24/2024 URINA LYSIS , COMPL ETE W/REF WILFREDO TO CULTU RE occult blood 1+ negati ve abnormal Not Available [address], [address], 12/24/2024 23:57:31 12/23/19 25 12/24/2024 URINA LYSIS , COMPL ETE W/REF WILFREDO TO CULTU RE protein 1+ negati ve abnormal Not Available [address], [address], 12/24/2024 23:57:31 12/23/19 25 12/24/2024 URINA LYSIS , COMPL ETE W/REF WILFREDO TO CULTU RE nitrite POSITI VE negati ve abnormal Not Available [address], [address], 12/24/2024 23:57:31 12/23/19 25 12/24/2024 URINA LYSIS , COMPL ETE W/REF WILFREDO TO CULTU RE leukocyte esterase 3+ negati ve abnormal Not Available [address], [address], 12/24/2024 23:57:31 12/23/19 25 12/24/2024 URINA LYSIS , COMPL ETE W/REF WILFREDO TO CULTU RE WBC PACKED /hpf < or = 5 abnormal Not Available [address], [address], 12/24/2024 23:57:31 12/23/19 25 12/24/2024 URINA LYSIS , COMPL ETE W/REF WILFREDO TO CULTU RE RBC NONE SEEN /hpf < or = 2 normal Not Available [address], [address], 12/24/2024 23:57:31 12/23/19 25 12/24/2024 URINA LYSIS , COMPL ETE W/REF WILFREDO TO CULTU RE squamous epithelial cells NONE SEEN /hpf < or = 5 normal Not Available [address], [address], 12/24/2024 23:57:31 12/23/19 25 12/24/2024 URINA LYSIS , COMPL ETE W/REF WILFREDO TO CULTU RE bacteria MANY /hpf none seen abnormal Not Available [address], [address], 12/24/2024 23:57:31 12/23/19 25 12/24/2024 URINA LYSIS , COMPL ETE W/REF WILFREDO TO CULTU RE hyaline cast NONE SEEN /lpf none seen normal Not Available [address], [address], 12/24/2024 23:57:31 12/23/19 25 12/24/2024 URINA LYSIS , COMPL ETE W/REF WILFREDO TO CULTU RE note This urine was akanksha zed for the prese nce of WBC, RBC, bacte daija, casts , and other forme d eleme nts. Only those eleme nts seen were repor jessica. Not Available [address] [place], [address], 12/24/2024 23:57:31 12/23/19 25 12/24/2024 REFLE XIVE URINE CULTU RE reflexive urine culture CULTU RE INDIC ATED - RESUL TS TO FOLLO W Not Available [facility] [place] [address] [place], [address], 12/24/2024 23:57:33 12/23/19 25 12/25/2024 CULTU RE, URINE , ROUTI NE culture, urine, routine SEE NOTE abnormal CULTU RE, URINE , ROUTI NE Micro Numbe r: [id number] Test Statu s: Final Speci men Sourc e: Urine Speci men Quali ty: Adequ ate Resul t: Great er than 100,0 00 CFU/m L of Michelet morales ----- ----- ----- - INT UGO AMOX/ CLAVU LANAT E R >=32 AMP/S ULBAC HOWE R >=32 CEFAZ LAUREEN R >=64 1 CEFTA ZIDIM E S <=1 CIPRO FLOXA ORVILLE R >=4 GENTA MICIN S <=1 MEROP ENEM S <=0.2 5 NITRO FURAN TOIN R 128 PIP/T AZOBA CTAM S <=4 TRIME THOPR IM/STARR LFA S <=20 S = Susce ptibl e I = Inter media te R = Resis tant NS = Not susce ptibl e SDD = Susce ptibl e Dose Depen dent * = Not Teste d NR = Not Repor jessica NN = See Thera py Comme nts THERA PY COMME NTS Note 1: For uncom plica jessica UTI cause d by E. coli, K. pneum oniae or P. mirab ilis: Cefaz laureen is susce ptibl e if UGO <32 mcg/m L and predi cts susce ptibl e to the oral agent s cefac aayush, cefdi angela, cefpo doxim e, cefpr ozil, cefur oxime , cepha lexin and lorac arbef . Not Available [employer] [facility] [address] [place], [address], 12/25/2024 13:34:31 12/23/1912/23/2024 urina lysis , dipst ick Leukocytes Large Not Available In-Offi ce Order Internal Use Only DO Not Attach Compendium DO Not Attach Compendium, Do Not Delete/merge, 12/23/2024 12:04:12 12/23/1912/23/2024 urina lysis , dipst ick Nitrite positi ve Not Available In-Office Order Internal Use Only DO Not Attach Compendium DO Not Attach Compendium, Do Not Delete/merge, 12/23/2024 12:04:12 12/23/1912/23/2024 urina lysis , dipst ick Urobilinogen .2 Not Available In-Of fice Order Internal Use Only DO Not Attach Compendium DO Not Attach Compendium, Do Not Delete/merge, 12/23/2024 12:04:12 12/23/1912/23/2024 urina lysis , dipst ick Protein 100 Not Available In-Office Order Internal Use Only DO Not Attach Compendium DO Not Attach Compendium, Do Not Delete/merge, 12/23/2024 12:04:12 12/23/1912/23/2024 urina lysis , dipst ick pH 7.0 Not Available In-Office Order Internal Use Only DO Not Attach Compendium DO Not Attach Compendium, Do Not Delete/merge, 12/23/2024 12:04:12 12/23/1912/23/2024 urina lysis , dipst ick Blood Small Not Available In-Office Order Internal Use Only DO Not Attach Compendium DO Not Attach Compendium, Do Not Delete/merge, 12/23/2024 12:04:12 12/23/19 25 12/23/2024 urina lysis , dipst ick Specific Ariton 1.020 Not Available In-Off ice Order Internal Use Only DO Not Attach Compendium DO Not Attach Compendium, Do Not Delete/merge, 12/23/2024 12:04:12 12/23/19 25 12/23/2024 urina lysis , dipst ick Ketone Negati ve Not Available In-Office Order Internal Use Only DO Not Attach Compendium DO Not Attach Compendium, Do Not Delete/merge, 12/23/2024 12:04:12 12/23/19 25 12/23/2024 urina lysis , dipst ick Bilirubin Negati ve Not Available In-Office Order Internal Use Only DO Not Attach Compendium DO Not Attach Compendium, Do Not Delete/merge, 12/23/2024 12:04:12 12/23/19 25 12/23/2024 urina lysis , dipst ick Glucose Negati ve Not Available In-Office Order Internal Use Only DO Not Attach Compendium DO Not Attach Compendium, Do Not Delete/merge, 12/23/2024 12:04:12 12/23/1912/23/2024 urina lysis , dipst ick Appearance Cloudy Not Available In-Offi ce Order Internal Use Only DO Not Attach Compendium DO Not Attach Compendium, Do Not Delete/merge, 12/23/2024 12:04:12 12/23/1912/23/2024 urina lysis , dipst ick Color Pale Yellow Not Available In-Office Order Internal Use Only DO Not Attach Compendium DO Not Attach Compendium, Do Not Delete/merge, 12/23/2024 12:04:12 01/07/20 25 01/08/2025 CULTU RE, URINE , ROUTI NE culture, urine, routine SEE NOTE CULTU RE, URINE , ROUTI NE Micro Numbe r: [id number] Test Statu s: Final Speci men Sourc e: Urine Speci men Quali ty: Adequ ate Resul t: Mixed genit al radha isola jessica. These super ficia l bacte daija are not indic ative of a urina ry tract infec tion. No furth er organ ism ident ifica tion is warra nted on this speci men. If clini julio indic ated, recol lect clean -catc h, mid-s tream urine and trans raya immed iatel y to Urine Cultu re Trans port Tube. Not Available [employer] [facility] [address] , [place], [address], 01/08/2025 02:28:15 Result Notes None recorded. Problems Name Problem SNOMED Code Status Onset Date Resolution Date Notes Provider Name and Address Organization Details Recorded Time Mixed hyperlip idemia 178063409 Active 2017 Not Available [facility] 2 06:13:19 Neck pain 92841736 Completed 201906/03/2022 Manuel Walker MD Attn: Accounting ,[address] [facility], [place], [address] , [place] - [facility] 2 10:40:44 Body mass index 20-24 - normal 659055025 Active 2021 Not Available [employer] 2 06:13:19 Long-ter m drug therapy Active 2021 Not Available [facility] 2 06:13:19 Mitral valve prolapse 900833748 Active 2021 Manuel Walker MD Attn: Accounting ,[address] [facility], [place], [address] , [place] - [facility] 3 14:18:34 COVID-19 355928385 Completed 202202/19/2023 Manuel Walker MD Attn: Accounting ,[address] 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, [place], [address] , [place] [facility] 3 14:18:34 Pain of left eye 29449735144 9104 Completed 202210/16/2023 Manuel Walker MD Attn: Accounting ,[address] [facility], [place], [address] , [place] [facility] 3 11:31:25 Pain of left eye 83329127192 9104 Active 2022 Manuel Walker MD Attn: Accounting ,[address] [facility], [place], [address] , [place] [facility] 3 11:31:25 Acute diarrhea 334685015 Active 2023 Manuel Walker MD Attn: Accounting ,[address] [facility], [place], [address] , [facility] - [facility] 4 15:30:42 Chronic diarrhea 598339394 Active 2023 Manuel Walker MD Attn: Accounting ,[address] [facility], [place], [address] , [facility] - [facility] 4 23:13:16 Dry cough 36626377 Active 2023 Manuel Walker MD Attn: Accounting ,[address] [facility], [place], [address] , [place] - [facility] 4 15:31:53 Tear film insuffic iency 47078095 Completed 201107/30/2012 Manuel Walker MD Attn: Accounting ,[address] [place], [address] , [place] - [facility] 3 14:19:55 Knee pain Completed 201403/17/2015 Manuel Walker MD Attn: Accounting ,[address] [facility], [place], [address] , [place] - [facility] 3 14:19:34 Benign essentia l hyperten stephen 4884584 Completed 201108/18/2013 Location : None;Sev erity: Moderate ;Progres s: Stable;A dded By: Roxanna Alfaro;Add to Current Problems : NO Manuel Walker MD Attn: Accounting ,[address] [facility], [place], [address] , [facility] - [facility] 3 14:17:40 Mitral valve disorder 20203332 Completed 201110/16/2023 Manuel Walker MD Attn: Accounting ,[address] [facility], [place], [address] , [place] [facility] 3 11:30:10 Cataract 050016192 Completed 201410/15/2022 Manuel Walker MD Attn: Accounting ,[address] [facility], [place], [address] , [facility] - [facility] 3 14:18:53 Sprain of shoulder and upper arm Completed 201107/31/2012 Manuel Walkre MD Attn: Accounting ,[address] 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, [place], [address] , [facility] - [facility] 3 14:19:20 Benign essentia l hyperten stephen 2592641 Active 2011 Manuel Walker MD Attn: Accounting ,[address] 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, [place], [address] , [facility] - [facility] 3 14:18:14 Hormone replacem ent therapy Active 2011 Manuel Walker MD Attn: Accounting ,[address] [facility], [place], [address] , [facility] - [facility] 3 14:17:45 Onychomy cosis due to dermatop hyte 186672319 Completed 201306/24/2014 Manuel Walker MD Attn: Accounting ,[address] [facility], [place], [address] , [place] - [facility] 3 14:19:42 Localize d, primary osteoart hritis 370059187 Completed 201110/25/2020 Manuel Walker MD Attn: Accounting ,[address] [facility], [place], [address] , [place] [facility] 3 14:18:08 Osteoart hritis of knee 687157463 Active 2011 Manuel Walker MD Attn: Accounting ,[address] [facility], [place], [address] , [facility] - [facility] 3 14:18:02 Problem Notes None recorded. Procedures Surgical History Date Name Laterality Status Provider Name and Address Organization Details Recorded Time 03/06/20 15 Knee Surgery completed Debi Canales [place] [facility] 03/27/2017 11:58:05 Eye Surgery completed Ledykayla Golden [place] - [facility] 11/01/2016 15:07:30 [facility]/01/2016 15:07:37 Imaging Results None recorded. Procedure Notes None recorded. Medical Equipment None Reported. Allergies Allergen ID Allergen Name Allergen Category Reaction Reaction Severity Criticality Documentation Date Start Date Code Code System Note Provider Name and Address Organization Details Recorded Time 743365 cephalexi n medicatio n rash severe Not available 06/30/20182017 2231 RxNorm took cefdi angela witho ut react ion FELI Cuenca Attn: Accountin g,[address] [place], [address], [place] [facility] 5 14:43:11 923306 grapefrui t extract food lighthead edness Not available Not available 10/22/2024 24515 3 RxNorm Sobia Duran MA null, [place] - [facility] 4 11:57:00 906165 Macrobid medicatio n diarrhea nausea vomiting severe severe severe high 12/09/2024 82349 1 RxNorm LOLA Cuenca-C Attn: Char gabriela,[address] [facility], [place], [address], [facility] 5 21:02:25 84267 Premarin medicatio n headache moderate Not available 10/30/20162011 18616 6 RxNorm React ion: heada cristina;S everi ty: Moder ate; Comme nt: Aller gy Type: Adver se React ion; Not Available [facility] 7 03:46:39 32135 Lipitor medicatio n Not available Not available Not available 10/30/20162011 05496 5 RxNorm React ion: leg pain; Sever ity: Moder ate; Comme nt: Aller gy Type: Adver se React ion; Not Available [facility] 7 03:46:39 85977 Substance with sulfonami de structure and antibacte rial mechanism of action (substanc e) medicatio n Not available Not available Not available 10/30/20162011 16977 8003 SNOMED Sever ity: Moder ate; Comme nt: Aller gy Type: Aller gy; Not Available [facility] 7 03:46:39 86149 Product containin g penicilli n (product) medicatio n Not available Not available Not available 10/30/20162011 63461 8001 SNOMED Sever ity: Moder ate; Comme nt: Aller gy Type: Aller gy; Not Available [facility] 7 03:46:39 Medications Name Sig Start Date Stop Date Status Note LastModified by Organization Details LastModified Time losartan 50 mg tablet TAKE 1 TABLET BY MOUTH EVERY DAY active Not Available Not Available No t Available lisinopril 20 mg-hydrochl orothiazide 12.5 mg tablet TAKE 1 TABLET BY MOUTH DAILY. 08/13 completed Not Available Not Available Not Available azithromyci n 250 mg tablet TAKE 2 TABLETS BY MOUTH TODAY, THEN TAKE 1 TABLET DAILY FOR 4 DAYS 10/15 completed Not Available Not Available Not Available pravastatin 40 mg tablet TAKE 1 TABLET BY MOUTH EVERY DAY AT NIGHT 03/02 completed Not Available Not Available Not Available ibuprofen 800 mg tablet TAKE 1 TABLET BY MOUTH EVERY 8 HOURS NEEDED FOR PAIN 10/16 completed Not Available Not Available Not Available tizanidine 4 mg tablet TAKE 1 TABLET BY MOUTH EVERY 8 HOURS NEEDED 01/02 completed Not Available Not Available Not Available metoprolol succinate ER 50 mg tablet,exte nded release 24 hr TAKE 1 TABLET BY MOUTH EVERY DAY 10/15 completed Not Available Not Available Not Available valacyclovi r 1 gram tablet Take 2 tablets by mouth twice today, 12 hours apart. Then take one tablet by mouth 3 times daily x 4 days. 10/16 completed Not Available Not Available Not Available hydrocodone 5 mg-acetamin ophen 325 mg tablet TAKE 1 OR 2 TABLETS BY MOUTH EVERY 6 HOURS NEEDED FOR PAIN 10/15 completed Not Available Not Available Not Available phenazopyri dine 200 mg tablet 11/01 completed Not Available Not Available Not Available lisinopril 20 mg tablet TAKE 1 TABLET BY MOUTH EVERY DAY IN THE EVENING 01/02 completed Not Available Not Available Not Available prednisone 20 mg tablet TAKE 2 TABS BY MOUTH EVERY MORNING X 3 DAYS, THEN 1 TAB EVERY MORNING X 4 DAYS 08/25 completed Not Available Not Available Not Available metronidazo le 250 mg tablet TAKE 1 TABLET BY MOUTH THREE TIMES DAILY FOR 10 DAYS 07/02 completed Not Available Not Available Not Available atenolol 25 mg tablet Take 1 tablet every day by oral route. active Not Available Not Available No t Available clindamycin HCl 150 mg capsule 02/04 completed Not Available Not Available Not Available promethazin e 6.25 mg-codeine 10 mg/5 mL syrup Take 5 mL every 6 hours by oral route as needed. 05/12 completed Not Available Not Available Not Available metronidazo le 500 mg tablet TAKE 1 TABLET BY MOUTH EVERY 8 HOURS FOR 10 DAYS 10/25 completed Not Available Not Available Not Available fexofenadin e 180 mg tablet TAKE 1 TABLET BY MOUTH EVERY DAY FOR 30 DAYS 10/22 completed Not Available Not Available Not Available ciprofloxac in 250 mg tablet TAKE 1 TABLET BY MOUTH EVERY 12 HOURS FOR 3 DAYS active Not Available Not Available No t Available ciprofloxac in 500 mg tablet TAKE 1 TABLET BY MOUTH TWICE A DAY FOR 10 DAYS 10/25 completed Not Available Not Available Not Available ketorolac 0.5 % eye drops 11/20 completed Not Available Not Available Not Available ciclopirox 8 % topical solution 02/04 completed Not Available Not Available Not Available Tessalon Perles 100 mg capsule Take 1 capsule(s ) by mouth tid 03/15 completed RxNor m: [id number] 5;All ow Subst ituti on: True Not Available Not Available Not Available potassium chloride ER 20 mEq tablet,exte nded release(par t/cryst) TAKE 1 TABLET BY MOUTH EVERY DAY active Not Available Not Available No t Available famotidine 20 mg tablet TAKE 1 TABLET BY MOUTH TWICE A DAY FOR 20 DAYS 10/22 completed Not Available Not Available Not Available pravastatin 80 mg tablet TAKE 1 TABLET BY MOUTH EVERY DAY AT NIGHT active Not Available Not Available No t Available prednisolon e acetate 1 % eye drops,suspe nsion USE 1 DROP IN BOTH EYE THREE TIMES DAILY FOR 3 DAYS 10/16 completed Not Available Not Available Not Available potassium citrate ER 10 mEq (1,080 mg) tablet,exte nded release take one daily 11/01 completed RxNor m: [id number] 1;All ow Subst ituti on: True Not Available Not Available Not Available cephalexin 500 mg capsule one PO TID for 10 days 07/20 completed Not Available Not Available Not Available hyoscyamine sulfate 0.125 mg tablet Take 1 tablet 3 times a day by oral route as needed. 01/02 completed Not Available Not Available Not Available Compazine 25 mg rectal suppository insert 1 rectally every 6 hrs prn vomiting 05/03 completed RxNor m: 98054 9;All ow Subst ituti on: True Not Available Not Available Not Available tobramycin 0.3 % eye drops 11/20 completed Not Available Not Available Not Available losartan 25 mg tablet TAKE 1 TABLET BY MOUTH EVERY DAY IN THE MORNING active Not Available Not Available No t Available lisinopril 20 mg-hydrochl orothiazide 25 mg tablet TAKE 1 TABLET BY MOUTH TWICE A DAY 07/30 completed Not Available Not Available Not Available codeine 10 mg-guaifene sin 100 mg/5 mL oral liquid TAKE 5-10 ML BY MOUTH AT BEDTIME NEEDED FOR COUGH. 01/17 completed Not Available Not Available Not Available pravastatin 20 mg tablet TAKE 1 TABLET BY MOUTH EVERYDAY AT BEDTIME 10/16 completed Not Available Not Available Not Available hydrochloro thiazide 25 mg tablet TAKE 1/2 TABLET BY MOUTH EVERY DAY active Not Available Not Available No t Available lisinopril 10 mg-hydrochl orothiazide 12.5 mg tablet TAKE 1 TABLET BY MOUTH EVERY DAY 07/06 completed Not Available Not Available Not Available methylpredn isolone 4 mg tablets in a dose pack Take as directed with food 11/12 completed Not Available Not Available Not Available timolol maleate 0.5 % eye drops 11/20 completed Not Available Not Available Not Available cefdinir 300 mg capsule TAKE 1 CAPSULE BY MOUTH TWICE A DAY active Not Available Not Available No t Available atenolol 50 mg tablet TAKE 1 TABLET BY MOUTH EVERY DAY active Not Available Not Available No t Available estradiol 0.1 mg/24 hr weekly transdermal patch APPLY 1 PATCH TO LOWER ABDOMEN EVERY WEEK 01/17 completed Not Available Not Available Not Available azithromyci n 500 mg tablet 02/04 completed Not Available Not Available Not Available Zetia 10 mg tablet Take 1 tablet(s) by mouth daily 01/26 completed RxNor m: [id number] 4;All ow Subst ituti on: True Not Available Not Available Not Available Restasis 0.05 % eye drops in a dropperette Instill 1 drop(s) to each eye bid 07/18 completed RxNor m: [id number] 2;All ow Subst ituti on: True Not Available Not Available Not Available nitrofurant oin monohydrate /macrocryst als 100 mg capsule TAKE 1 CAPSULE BY MOUTH EVERY 12 HOURS FOR 7 DAYS active Not Available Not Available No t Available hydrochloro thiazide 12.5 mg tablet TAKE 1 TABLET BY MOUTH EVERY DAY FOR 90 DAYS 2024 active Not Available Not Available Not Avai lable GaviLyte-N 420 gram oral solution 02/04 completed Not Available Not Available Not Available Fluzone Quad (PF) 60 mcg (15 mcg x 4)/0.5 mL IM syringe 11/03 completed Not Available Not Available Not Available Fluzone High-Dose Quad 2020-21 (PF) 240 mcg/0.7 mL IM syringe TO BE ADMINISTE RED BY PHARMACIS T FOR IMMUNIZAT ION 11/20 completed Not Available Not Available Not Available Paxlovid 300 mg (150 mg x 2)-100 mg tablets in a dose pack PLEASE SEE ATTACHED FOR DETAILED DIRECTION S 03/02 completed Not Available Not Available Not Available Vitals Date Recorded Body height Body mass index (BMI) Body weight Oxygen saturation Oxygen saturation in Arterial blood by Pulse oximetry Heart rate Body temperature Systolic blood pressure Diastolic blood pressure Provider Name and Address Organization Details Last Updated DateTime 5 168.91 cm 24.7 kg/m2 85391.6 2 g 98 % 98 % 64 /min 96 [degF] 120 mm[Hg] 69 mm[Hg] Maria A Silverman LPN [facility] 5 11:00:25 Social History Question Answer Notes LastModified by Organizat ion Details LastModified Time Tobacco Smoking Status Never Smoker Ledy Chantel carroll, [facility] 11/01/2016 10:38:23 Do You Have An Advance Directive? Yes Information not available 07/06/2021 Are You Blind Or Do You Have Difficulty Seeing? No Information not available 07/06/2021 What Is Your Level Of Caffeine Consumption? Moderate Information not available 07/06/2021 In The 14 Days Before Symptom Onset, Have You Had Close Contact With A Laboratory-confir med COVID-19 While That Case Was Ill? No Information not available 07/06/2021 In The 14 Days Before Symptom Onset, Have You Had Close Contact With A Person Who Is Under Investigation For COVID-19 While That Person Was Ill? No Information not available 07/06/2021 Have You Been To An Area Known To Be High Risk For COVID-19? No Information not available 07/06/2021 Are You Deaf Or Do You Have Serious Difficulty Hearing? Yes Information not available 07/06/2021 What Type Of Diet Are You Following? SPECIFIC Low Salt Low Fat Information not available 07/06/2021 What Was The Date Of Your Most Recent Tobacco Screening? 10/22/2024 [email or web address] Information not available 10/22/2024 What Is Your Relationship Status? Information not available 07/06/2021 Do You Use Your Seat Belt Or Car Seat Routinely? Yes Information not available 07/06/2021 Do You Have Smoke And Carbon Monoxide Detectors In Your Home? Yes Information not available 07/06/2021 Are You Passively Exposed To Smoke? No Information no t available 07/06/2021 How Much Tobacco Do You Smoke? No Information not available 10/25/2020 Sex: Female Functional Status Question Answer Note LastModified by Organizat ion Details LastModified Time Do you use any illicit or recreational drugs? No Information not available 07/06/2021 Do you or have you ever used any other forms of tobacco or nicotine? No [email or web address] Information not available 10/15/2022 What is your level of alcohol consumption? Occasional Information not available 07/06/2021 Do you or have you ever used smokeless tobacco? Never used smokeless tobacco Information not available 10/25/2020 Are you currently employed? No Information not available 07/06/2021 Are you able to care for yourself? Yes Information not available 07/06/2021 Do you or have you ever used e-cigarettes or vape? Never used electronic cigarettes Information not available 10/25/2020 What is your exercise level? Moderate Information not available 07/06/2021 Mental Status Question Answer Note LastModified by Organization D etails LastModified Time Do you feel stressed (tense, restless, nervous, or anxious, or unable to sleep at night)? [id number] Information not available 07/06/2021 Family History Relationship Description Onset Age of this Age Resolved Age Notes LastModified by Organization Details LastModified Time Father Heart disease [email or web address] Not available 03/2017 15:07:55 Father Hypercholest erolemia [email or web address] Not available 03/2017 15:08:12 Father Congestive heart failure thoskinsma Not available 03/27 11:58:21 Father Coronary arterioscler osis thoskinsma Not available 03/27 11:58:29 Mother Hypertensive disorder [email or web address] Not available 03/2017 15:08:04 Mother Migraine ssadlowskima Not avail able 11/01/2016 15:08:21 Mother Osteoporosis ssadlowskima Not a vailable 11/01/2016 15:08:27 Brother Cerebrovascu lar accident thoskinsma Not available 11:58:41 Medical History Condition Response Coronary Artery Disease N Other N High Blood Pressure Y Atrial Fibrillation N Thyroid Problems N Kidney or Bladder Problems N GI Problems N Depression N COPD N Blood Clots N Skin Problems N Anemia N Heart Attack ([place]) N Anxiety Disorder N Diabetes N Muscle, Joint, or Bone Problems Y Seizures/Epilepsy N Acid Reflux (GERD) N Cancer N Stroke N Asthma N Allergies N ADHD N Substance Abuse N High Cholesterol Y Hepatitis N Liver Disease N Schizophrenia N Headaches N Heart Failure N Osteoporosis N Gynecological History Statement/Question Response Menses Monthly N On BCP's at Conception? N Obstetrics History GPAL:G 0 P 0 0 0 0 Immunizations Vaccine Type Date Status Note Provider Nam e and Address Organization Details Recorded Time Influenza, split virus, quadrivalent, preservative 9 completed Jessica [place], [place] [facility] 09/14/2019 09:37:45 Influenza, high-dose, quadrivalent, PF 0 completed Stephanie Chá[place], [place] [facility] 06/21/2020 16:02:37 COVID-19, mRNA, LNP-S, PF, 30 mcg/0.3 mL dose 1 completed Garima [place], [place] [facility] 07/06/2021 09:54:41 COVID-19, mRNA, LNP-S, PF, 30 mcg/0.3 mL dose 1 completed Garima Orlando [place] [facility] 07/06/2021 09:54:53 Influenza, split virus, quadrivalent, preservative 1 completed Garima [place] [facility] 07/06/2021 09:55:41 COVID-19, mRNA, LNP-S, PF, 30 mcg/0.3 mL dose 1 completed FELI Cuenca Attn: Accounting,[address] [facility], [place], [address], [place] [facility] 10/22/2024 12:11:32 COVID-19, mRNA, LNP-S, PF, 30 mcg/0.3 mL dose 2 completed Ashlie Brand[place] [facility] 02/06/2022 09:14:33 Influenza, split virus, quadrivalent, preservative 2 completed Stephanie Chá[place] [facility] 07/18/2022 09:51:47 COVID-19, mRNA, LNP-S, bivalent, PF, 30 mcg/0.3 mL dose 2 completed Stephanie Ch[place] [facility] 08/06/2022 21:29:42 COVID-19, mRNA, LNP-S, PF, rick-sucrose, 30 mcg/0.3 mL 4 completed Stephanie Ch[place] [facility] 08/09/2024 16:07:15 influenza, unspecified formulation 4 completed Stephanie Chá[place] [facility] 08/30/2024 16:21:53 Influenza, split virus, quadrivalent, preservative 7 completed Not Available [facility] 11/13/2019 02:46:40 Tdap 8 completed Not Available [facility] 11/13/2019 02:35:22 Influenza, split virus, quadrivalent, preservative 8 completed Not Available [facility] 11/13/2019 02:41:27 pneumococcal polysaccharide PPV23 9 completed Not Available [facility] 11/13/2019 02:42:38 Influenza, split virus, trivalent, preservative 2 completed Not Available [facility] 11/27/2019 02:11:41 Influenza, split virus, trivalent, preservative 3 completed Not Available [facility] 11/27/2019 02:11:41 Pneumococcal conjugate PCV 13 5 completed Not Available [facility] 10/30/2016 05:41:12 Influenza, split virus, quadrivalent, preservative 5 completed Not Available [facility] 11/27/2019 02:11:41 Td(adult) unspecified formulation 7 completed Ledy Golden null, [place] [facility] 11/01/2016 15:09:02 Pneumococcal conjugate PCV20, polysaccharide CDJ355 conjugate, adjuvant, PF 5 completed Maria A Silverman LPN [place], [place] [facility] 11/10/2024 12:38:30 Past Encounters Encounter ID Performer Location Encounter Start Date Encounter Closed Date Diagnosis/Indication Diagnosis SNOMED-CT Code Diagnosis ICD10 Code Diagnosis Note [id number] Ashlie Brandt MD [facility] [address] [place] [address] 11/01/2016 13:04:38 11/04/2016 13:26:29 Acute maxillary sinusitis 45542585 J01.00 [id number] Ashlie Brandt MD [facility] [address] [place] [address] 01/23/2017 09:17:24 01/23/2017 13:59:28 Pure hypercholesterolemia 418490552 E78.00 Mitral valve disorder 11 381020 I05.9 Long-term drug therapy 451075295 Z79.699 [id number] Ashlie Brandt MD [facility] [address] [place] [address] 02/05/2017 10:03:43 02/05/2017 16:49:35 Benign essential hypertension 1434612 I10 Mixed hyperlipidemia [address] imulating hormone level above reference range 428928781 R79.89 noris in 6 months [id number] Ashlie Brandt MD [facility] [address] [place] [address] 02/27/2017 09:39:12 02/27/2017 12:31:09 Benign essential hypertension 9309303 I10 Patient has been getting low readins at home so didn't take med today [id number] Ashlie Brandt MD [facility] [address] [place] [address] 03/27/2017 11:25:43 03/27/2017 13:42:45 Mitral valve disorder 87584581 I05.9 Benign ess ential hypertension 1763169 I10 Patient has been getting low readins at home so didn't take med today [id number] Ashlie Brandt MD [facility] [address] [place] [address] 08/13/2017 09:54:52 08/18/2017 15:08:26 Benign essential hypertension 7654331 I10 Administra tion of influenza vaccine 14892353 Z23 Mixed hyperlipidemia 267 365045 E78.2 Screening for malignant neoplasm of breast 474121820 Z12.39 Hormone re placement therapy 338218686 Z79.890 patient still wants to continue Screening for malignant neoplasm of colon 493839394 Z12.11 [id number] Ashlie Brandt MD [facility] [address] [place] [address] 08/21/2017 17:13:31 08/25/2017 12:20:15 Contact dermatitis caused by urushiol from [facility] kunal 504209371 L25.5 [id number] Ashlie Brandt MD [facility] [address] [place] [address] 02/04/2018 09:53:04 02/05/2018 17:33:55 Benign essential hypertension 6171621 I10 Mixed hyperlipidemia 267 630346 E78.2 Administra tion of diphtheria, pertussis, and tetanus vaccine 168439589 Z23 [id number] Ashlie Brandt MD [facility] [address] [place] [address] 06/26/2018 11:12:52 06/26/2018 12:17:02 Acute maxillary sinusitis 42857046 J01.00 Hormone re placement therapy 072568967 Z79.890 patient still wants to continue Benign ess ential hypertension 2381721 I10 Mixed hyperlipidemia 267 428081 E78.2 [id number] Ashlie Brandt MD [facility] [address] [place] [address] 07/20/2018 15:05:56 07/21/2018 11:46:58 Vasculitis 64032509 I77.6 [id number] Ashlie Brandt MD [facility] [address] [place] [address] 08/03/2018 09:56:39 08/04/2018 13:02:31 Mixed hyperlipidemia 468656766 E78.2 Benign ess ential hypertension 9430720 I10 Osteoarthr itis of knee 405404155 M17.9 [id number] Ashlie Brandt MD [facility] [address] [place] [address] 08/05/2018 10:55:22 08/06/2018 10:45:38 Benign essential hypertension 6857045 I10 Mixed hyperlipidemia 267 699020 E78.2 Administra tion of influenza vaccine 35761976 Z23 [id number] Ashlie Brandt MD [facility] [address] [place] [address] 10/05/2018 12:26:44 10/06/2018 11:37:33 Diarrhea of presumed infectious origin 78168094 A09 if patient calls back due david cultures [id number] Ashlie Brandt MD [facility] [address] [place] [address] 04/02/2019 10:22:03 04/02/2019 16:47:52 Benign essential hypertension 7987445 I10 Mixed hyperlipidemia 267 333613 E78.2 Vasculitis 51455330 I77. 6 Administra tion of pneumococcal vaccine 02511032 Z23 Screening for malignant neoplasm of breast 038445452 Z12.39 [id number] Ashlie Brandt MD [facility] [address] [place] [address] 08/12/2019 09:35:51 08/12/2019 12:45:39 Strain of neck muscle 285086676 S16.1XXA Viral uppe r respiratory tract infection 692941747 J06.9 Influenza vaccination declined 342000694 Z28.21 [id number] Ashlie Brandt MD [facility] [address] [place] [address] 11/03/2019 15:59:14 11/04/2019 10:13:03 Acute bacterial bronchitis 671148217 J20.9 Neck pain 59692692 M54.2 Cervical radiculopathy 70834138 M54.12 [id number] Ashlie Brandt MD [facility] [address] [place] [address] 11/12/2019 09:55:36 11/16/2019 11:37:34 Neck pain 78270966 M54.2 [id number] Ashlie Brandt MD [facility] [address] [place] [address] 05/12/2020 09:22:51 05/12/2020 13:05:29 Benign essential hypertension 7349012 I10 Mixed hyperlipidemia 267 127969 E78.2 Neck pain 22445617 M54.2 pain improved -- Dr. Payne [id number] CAITLYN Mayer [facility] [address] [place] [address] 10/25/2020 12:07:12 10/25/2020 20:28:21 Cataract [id number] H26.9 cleared for upcoming cataract surgery. KNee surgery no issues with anesthesia or BP issues. Will send clearance form. Mixed hyperlipidemia 267 012016 E78.2 continue current statin, will update lab today. Ate breakfast 4 hours ago. Benign ess ential hypertension 6678252 I10 Hormone re placement therapy 496794395 Z79.890 Screening for malignant neoplasm of breast 240112133 Z12.39 Chronic diarrhea 8272977 09 K52.9 will await lab from today and then get stool cultures if all ok, no more antibiotic s, doubt diverticul ar issue. Continue bland BRAT type diet, stay hydrated. Ok to try levsin prn to see if any benefit. Do not continue if no help. [id number] Ashlie Brandt MD [facility] [address] [place] [address] 11/20/2020 10:17:12 11/20/2020 15:57:48 Benign essential hypertension 2031653 I10 Mixed hyperlipidemia 267 849360 E78.2 [id number] Ashlie Brandt MD [facility] [address] [place] [address] 07/06/2021 09:36:33 07/09/2021 08:56:14 Benign essential hypertension 9825656 I10 Mixed hyperlipidemia 267 348138 E78.2 [id number] Ashlie Brandt MD [facility] [address] [place] [address] 01/02/2022 09:37:07 01/02/2022 13:49:07 Benign essential hypertension 6219923 I10 Mixed hyperlipidemia 267 621609 E78.2 Change in skin lesion 39 3487838 L98.9 [id number] Manuel Walker MD [facility] [address] [place] [address] 06/03/2022 11:02:45 06/03/2022 15:54:48 Acute upper respiratory infection 46484117 J06.9 - negative in office covid test- treat supportive ly- continue mucolytic as long as cough is productive - no indication for antibiotic at this time- night time cough suppressan t for improved rest, daytime for non-produc tive cough, prenisone for anti-infla mmatory effect- To call if not improving in 7-10 days.- Patient voices understand ing and agreement with plan. [id number] Manuel Walker MD [facility] [address] [place] [address] 10/15/2022 14:59:02 10/22/2022 16:22:14 Adult health examination 548981673 Z00.00 Health Risk Assessment collected and reviewed# Health Maintenanc e(>18) Depression screen: Denies feeling depressed or having little pleasure in doing things.(>6 5) Fall prevention : Low risk for fall(>65) Osteoporos is: Not at risk. Not a smoker or daily alcohol use, BMI>21, no family history. Previous normal DEXAVaccin esTdap: up-to-date .Influenza vaccine: up-to-date .Pneumococ lovely: up to date- Counseled on healthy diet and physical activity. Mixed hyperlipidemia 267 513741 E78.2 # Hyperlipid emia - Last lipid panel > 1 year ago - ACC/AHA CV risk > 7.5% - Repeat at earliest convenienc e - Continue with current management without changes. - Focus on a dietlow in saturated fats(https ://www.[facility] fhealth.or g/educatio n/guidelin es-for-a-l ow-cholest dejah-low-s aturated-f at-diet),b lood pressure control,sm oking cessation( http://antonio tyes.org/) anddaily exerciseto reduce your risk ofheart disease and stroke. Benign ess ential hypertension 6684970 I10 # HTN - Controlled - Continue current medication s. No change in management - Encouraged routine blood pressure checksat home, targetless than 140/90 - DiscussedD RUT diet(https ://www.nhl bi.nih.gov /files/doc s/public/h eart/dash_ brief.pdf) anddietary sodium restrictio ns - Continue/I ncrease dietary efforts and physical activity Osteoarthr itis of knee 306873736 M17.9 - stable, uses acetaminop hen for breakthrou gh symptoms Body mass index 20-24 - normal 402381946 Z68.24 Focus on a healthy diet, avoid added salt, and tbgpnn5782 calories or less daily. Exercise as tolerated, targeting3 0-60 minutes of exercise daily, at least 5 days per week Long-term drug therapy 469263284 Z79.899 Checking routine labwork for ongoing long-term medication use. Mitral valve prolapse 40 3090562 I34.1 [id number] Manuel Walker MD [facility] [address] [facility] [address] [facility] [place] [address] 01/02/2023 11:40:48 01/03/2023 09:54:12 COVID-19 064125563 U07.1 D/w pt the current pandemic of COVID-19 and call for social isolation in order to blunt the curve and minimize risk and spread. Encouraged patient and family to take restrictio ns seriously. They have verbalized understand ing of such. All questions answered. 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 No change in management - Encouraged routine blood pressure checksat home, targetless than 140/90 - DiscussedD RUT diet(https ://www.nhl bi.nih.gov /files/doc s/public/h eart/dash_ brief.pdf) anddietary sodium restrictio ns - Continue/I ncrease dietary efforts and physical activity Mixed hyperlipidemia 267 441264 E78.2 # Hyperlipid emia- Last lipid panel < 1 year ago- ACC/AHA CV risk > 7.5%- Repeat prior to next visit- Continue with current management without changes.- Focus on a dietlow in saturated fats(https ://www.[facility] fhealth.or g/educatio n/guidelin es-for-a-l ow-cholest dejah-low-s aturated-f at-diet),b lood pressure control,sm oking cessation( http://antonio tyes.org/) anddaily exerciseto reduce your risk ofheart disease and stroke. Body mass index 20-24 - normal 023713494 Z68.24 Focus on a healthy diet, avoid added salt, and upupjr0243 calories or less daily. Exercise as tolerated, targeting3 0-60 minutes of exercise daily, at least 5 days per week Long-term drug therapy 665298054 Z79.899 Checking routine labwork for ongoing long-term medication use. 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 convenienc e, sooner if vision change or if pain is prolonged [id number] Manuel Walker MD [facility] [address] [place] [address] 10/16/2023 10:48:28 10/16/2023 15:33:19 Mixed hyperlipidemia 246969811 E78.2 # Hyperlipid emia- Last lipid panel < 1 year ago- ACC/AHA CV risk > 7.5%- Repeat per cardiology - Continue with current management without changes.- Focus on a dietlow in saturated fats(https ://www.[facility] f[facility].or g/educatio n/guidelin es-for-a-l ow-cholest dejah-low-s aturated-f at-diet),b lood pressure control,sm oking cessation( http://antonio tyes.org/) anddaily exerciseto reduce your risk ofheart disease and stroke. Benign ess ential hypertension 5357916 I10 # HTN - Controlled - Continue current medication s. No change in management - Encouraged routine blood pressure checksat home, targetless than 140/90 - DiscussedD RUT diet(https ://www.nhl bi.nih.gov /files/doc s/public/h eart/dash_ brief.pdf) anddietary sodium restrictio ns - Continue/I ncrease dietary efforts and physical activity Mitral valve prolapse 40 2650594 I34.1 - stable, regular follow-up with cardiology Osteoarthr itis of knee 084391739 M17.9 - stable, uses acetaminop hen for breakthrou gh symptoms Body mass index 20-24 - normal 956744054 Z68.24 Focus on a healthy diet, avoid added salt, and ledqwo4067 calories or less daily. Exercise as tolerated, targeting3 0-60 minutes of exercise daily, at least 5 days per week Long-term drug therapy 295118232 Z79.899 Reviewed routine labwork for ongoing long-term medication use. [id number] Manuel Walker MD [facility] [address] [place] [address] 03/02/2024 14:33:40 03/02/2024 16:38:28 Acute diarrhea 623409206 R19.7 Stool studies - fecal leukocytes , o&p, cryptospor idiumDiscu ssed dietary modificati ons. Behavioral changesDec rease caffeine, lactose and fructose.I ncrease fiber intake in diet.Consi jessenia probiotics . [id number] Manuel Walker MD [facility] [address] [place] [address] 03/09/2024 10:55:41 03/09/2024 18:04:27 Acute diarrhea 132811906 R19.7 Stool studies unremarkab le with the exception of few fecal leukocytes Given results and symptoms, strongly suggests post-COVID symptomsCo ntinue to advance dietCall if persistent after one additional week or if symptoms worsen: pain, bleeding, fever [id number] Manuel Walker MD [facility] [address] [place] [address] 07/02/2024 14:23:46 07/04/2024 23:31:12 Dry cough 14299166 R05.9 Normal examNo red flag symptomsTr ial of anti-infla mmatoryant ihistamine s Benign ess ential hypertension 4860562 I10 well-contr olledcurre nt symptoms may be SERGIO inhibitor related coughif persistent , patient will fill new prescripti on in place of current [id number] Jessica Mcgill MD [facility] [address] [place] [address] 08/25/2024 15:29:54 08/26/2024 13:47:04 Benign essential hypertension 1567621 I10 saw [address] Starr in May and BP was borderline low at the time and has been. just changed her ACEI to losartan last month, and has felt that it was too strong. Seeing cardiology again in November. Will purchase a BP cuff of her own and call me next week if BP not >110/60 and pulse not >60 she will call me. Will cut her BB in half. Stay hydrated, avoid caffeine, call with ANY new or recurrent symptoms and update me on BP and pulse next week with changes. Bradycardia 86502574 R00 .1 will cut her atenolol in half from 50 to 25mg in light of her hypotensio n and bradycardi a with recent syncopal episode. Update labs (january labs reviewed, abnormal TSH) and copy to [facility]. Thyroid st imulating hormone level above reference range 992381796 R94.6 Syncope 670666826 R55 [id number] Jessica Mcgill MD [facility] [address] [place] [address] 10/22/2024 10:53:38 10/22/2024 14:01:41 Adult health examination 432572298 Z00.00 Health Risk Assessment collected and reviewedPt has a current living will. Her POA is her J Carlos Steward, secondary is son Paras.M AW2- no concerns at this time. Pt has walk in shower with built in chair. Will consider grab bars.SLUMS - Immunization advised 310 997172 Z71.9 -Discussed and education on shingles, prevnar 20 and RSV vaccine-pt will consider and possibly get sometime after November once the holidays have slowed down. Will go to local [facility]. Benign ess ential hypertension 7388487 I10 -Pt has been cutting losartan in half due to fatigue, light headedness and dizziness. Denies anymore syncope episodes since she last saw Humaira in office. We will decrease medication and have her come back in 2 weeks for a nurses visit to ensure this is correct dosing for her.-pt was advised to cut HCTZ in half at last appt. due to electrolyt e imbalance, asking for 12.5 mg dose tablets so she does not have to cut--will repeat CMP today for monitoring . Screening for malignant neoplasm of breast 413966334 Z12.39 Abdominal aortic aneurysm screening 531724313 Z13.6 Hepatitis C screening 41 2561161 Z11.59 [id number] Jessica Mcgill MD [facility] [address] [place] [address] 11/08/2024 10:49:07 11/08/2024 16:00:30 Benign essential hypertension [id number] I10 [id number] Jessica Mcgill MD [facility] [address] [place] [address] 11/10/2024 12:21:48 11/10/2024 15:46:14 Administration of pneumococcal vaccine [id number] Z23 [id number] Jessica Mcgill MD [facility] [address] [place] [address] 12/13/2024 11:37:24 12/13/2024 11:55:07 Urinary tract infectious disease [id number] N39.0 [id number] Jessica Mcigll MD [facility] [address] [place] [address] 12/23/2024 11:58:12 12/23/2024 15:22:21 Lower urinary tract symptoms [id number] R39.9 [id number] Jessica Mcgill MD [facility] [address] [place] [address] 01/06/2025 14:45:10 01/06/2025 16:07:53 Acute urinary tract infection [id number] N39.0 Health Concerns Section Related Observation LastModified by Organization Detai ls LastModified Time None Recorded Concern Status LastModified by Organization Details LastModified Time None Recorded Advance Directives Directive Y: Payers Encounter Date Sequence Insurance Name Policy Number Policy Lindsay Covered Member ID Lindsay Member ID Guarantor Name 11/08/2024 2 [place] [address] [id number] Lata Steward 11/08/2024 1 [place] Lata Steward [id number] Lata Steward 11/10/2024 2 [place] [address] [id number] Lata Steward 11/10/2024 1 [place] Lata Steward [id number] Lata Steward 12/13/2024 2 [place] [address] [id number] Lata Steward 12/13/2024 1 [place] Lata Steward [id number] Lata Steward 12/23/2024 2 [place] [address]audhary Segert [id number] Lata Steward 12/23/2024 1 [place] Lata Steward [id number] Lata Steward 01/06/2025 2 [place] [address] Segert [id number] Lata Steward 01/06/2025 1 [place] Lata Steward [id number] Lata Steward OBGyn Episode No OBEpisode recorded.
--- OUTSIDE RECORDS SUMMARY | 2025-03-24 12:52 | XMS_ITS ---
Author Organization [facility] Address [address] [place], [place] [id number] Care Team Providers Care Concrete Layer Name Role Phone FLO GUZMAN Unavailable [phone] ALLISON CORRAL Unavailable Unavailable Allergies Allergen (clinical drug ingredient) [...] Medicationciclopirox 80 MG/ML Topical Solution *Reorder from [employer] for eRx and Interaction Alerts* 11/07/2015 Active Vital Signs Height 66.00 in 02/23/2025 Weight 154 lbs 02/23/2025 BMI 24.85 kg/m2 02/23/2025 Height-cm 167.64 cm 02/23/2025 Weight-kg 69.85 kg 02/23/2025 Encounters Encounter Location Date Provider Diagnosis [facility] [address] [facility] [address] [place], [place] [id number] 02/23/2025 FLOPARIS GUZMAN Tinea unguium B35.1 ; Pain in right foot M79.671 ; Pain in left foot M79.672 ; Atherosclerosis of [place] arteries of extremities with intermittent claudication, bilateral legs I70.213 and Acquired keratosis [keratoderma] palmaris et plantaris L85.1 Assessments Encounter Date Diagnosis (ICD Code) Assessment Notes Treatment Notes Treatment Clinical Notes Section Notes 02/23/2025 Tinea unguium (ICD-10 - B35.1) Nails 1-5 Bilateral were debrided extensively with nail nippers and emery board, reducing length and girth to pink healthy tissue with any subungual debris and necrotic tissue removed 02/23/2025 Pain in right foot (ICD-10 - M79.671) 02/23/2025 Pain in left foot (ICD-10 - M79.672) 02/23/2025 Atherosclerosis of dry creek arteries of extremities with intermittent claudication, bilateral [...] problems develop. Provider Name:FLO GUZMAN, 02:20:00 PM, [address] [facility], [place], [place], [id number], Progress Notes * CHATO WILSON MDOB: 6 (79 yo F)Acc No.[id number]:02/23/2025 Patient: Chuck ASHEDECHATO Provider: Romel Guzman DPM :1945 A ge:79 Y S ex:Female Date:02/23/2025 Address:[address] [place] [address], [id number] Subjective: * Chief Complaints: * 1 . [...] blood thinners., Date last seen by Dr. Corral was November 2024. I carrie DIAZ, . * Medical History: M edical History Verified. * Family History: F ather: PRN - [...] Medicationciclopirox 80 MG/ML Topical Solution *Reorder from [facility] for eRx and Interaction Alerts*, Medication List reviewed and reconciled with the patient * Allergies: P enicillin V: Allergy - Onset Date 11/07/2015, Product containing sulfonamide (product): Allergy - Onset Date 11/07/2015, Cephalexin. Objective: * Vitals: W t: 154 lbs, Wt-k.85 kg, Ht: 66.00 in, Ht-cm: 167.64 cm, BMI: 24.85 Index, Body Surface Area: 1.8. * Examination: P hysical Examination: General appearance: [...] extremities. ? Assessment: * Assessment: 1. T inea unguium - B35.1 (Primary) 2 . P ain in right foot - M79.671 ? 3 . P ain in left foot - M79.672 4 . A therosclerosis of [place] arteries of extremities with intermittent claudication, bilateral legs - I70.213 5 . Acquired keratosis [keratoderma] palmaris et plantaris - L85.1 Plan: * Treatment: 2. A cquired keratosis [keratoderma] palmaris et plantaris Notes: A total of 4 corns or calluses, as described in the note above, were cut and pared utilizing a #15 blade * Immunizations: Immunization record has been reviewed and updated. * Procedure Codes: 1 1056 TRIM SKIN LESIONS, 2 TO 4, Modifiers: Q8 , 21475 DEBRIDE NAIL, 6 OR MORE, Modifiers: 59 , Q8 * Follow Up: 1 0 - 12 weeks (Reason: At-Risk Foot care, sooner if problems develop.) * Billing Information: * Visit Code: * Procedure Codes: 66812 TRIM SKIN LESIONS, 2 TO 4. Modifiers: Q8 34663 DEBRIDE NAIL, 6 OR MORE. Modifiers: 59, Q8 * Electronic signature of FLO GUZMAN DPM on 03/24/2025 at 12:51 PM CDT Sign off status: Pending * Provider: Romel Guzman DPM Date: 0 02/23/2025 Generated for Marti quesada/Loan/Jenniferitting on: 0 03/24/2025 [...] blood thinners., Date last seen by Dr. Corral was November 2024. Initials JMR, Examination Category Sub-Category Detail Notes Category Not [...]
== END 2025-03-24 12:41 | disposition home or self-care (01) ==
PROVIDERS: Visit Provider Urology
DX: N13.5 Crossing vessel and stricture of ureter without hydronephrosis (principal)
CPT/HCPCS: 78708; A9562; J1938